=== PATIENT | male | born 1995 | race Caucasian/White ===

== ENCOUNTER 2018-12-11 10:25 | Outpatient (CLI) | payer BC ==
[2018-12-11] MEDS ORDERED: LISD30CA5 PO (10:46)
[2018-12-18] MEDS ORDERED: FENTANYL PF 250 MCG/5ML ONE (06:53)
[2018-12-18] MEDS ORDERED: MIDAZOLAM 1 MG/ML, 2ML ONE (06:53)
[2018-12-18] MEDS ORDERED: DEXAMETHASONE 4 MG/ML, 5ML ONE (07:56)
[2018-12-18] MEDS ORDERED: PROPOFOL 10 MG/ML, 20ML ONE (07:57)
[2018-12-18] MEDS ORDERED: ROCURONIUM 10MG/ML,5ML ONE ×2 (07:57→14:19)
[2018-12-18] MEDS ORDERED: CEFAZOLIN 1,000 MG ONE (07:57)
[2018-12-18] MEDS ORDERED: ONDANSETRON 2MG/ML, 2ML ONE (09:06)
[2018-12-18] MEDS ORDERED: NEOSTIGMINE 1 MG/ML, 10ML ONE (09:16)
[2018-12-18] MEDS ORDERED: GLYCOPYRROLATE 0.4 MG/2 ML, 2ML ONE (09:17)
== END 2018-12-11 23:59 | disposition home or self-care (01) ==
LOC: STAR 10:25
PROVIDERS: ATTEND Surgery
DX: Z02.9 Encounter for administrative examinations, unspecified (principal)

== ENCOUNTER 2018-12-18 06:13 | Day surgery (SDC) | payer BC ==
[~2018-12-18] VITALS: Ht 182.9 cm; Wt 78.1 kg
[~2018-12-18 06:13] MED LIST: LISD30CA5 PO
[2018-12-18] MEDS ORDERED: LACTATED RINGERS 1,000 ML IV SCH (06:34)
[2018-12-18 06:57] VITALS: BP 120/77
[2018-12-18] MEDS ORDERED: ACETAMINOPHEN 500 MG TABLET PO ONE (07:30)
[2018-12-18] MEDS ORDERED: OxyconTIN ER 10 MG TAB.ER PO ONE (07:30)
[2018-12-18] MEDS ORDERED: GABAPENTIN 300 MG CAPSULE PO ONE (07:30)
[2018-12-18] MEDS ORDERED: FAMOTIDINE 20 MG TABLET PO ONE (07:30)
[2018-12-18] MEDS ORDERED: BUPIVACAINE/PF-EPI 0.5% 1:200K ONE (07:33)
[2018-12-18] MEDS ORDERED: PROPOFOL 10 MG/ML, 20ML ONE (07:48)
[2018-12-18] MEDS ORDERED: ONDANSETRON 2MG/ML, 2ML ONE (07:48)
[2018-12-18] MEDS ORDERED: GLYCOPYRROLATE 0.2MG/1ML, 5ML ONE (07:48)
[2018-12-18] MEDS ORDERED: DEXAMETHASONE 4 MG/ML, 1ML ONE (07:48)
[2018-12-18] MEDS ORDERED: CEFAZOLIN 1,000 MG ONE (07:48)
[2018-12-18] MEDS ORDERED: ROCURONIUM 10 MG/ML,10ML ONE (07:48)
[2018-12-18] MEDS ORDERED: NEOSTIGMINE 1 MG/ML, 10ML ONE (07:48)
[2018-12-18] MEDS ORDERED: hydrALAzine 20 MG/ML, 1ML IV PRN (08:30)
[2018-12-18] MEDS ORDERED: OXYcodone 5 MG/5 ML ORAL.SOL UDC PO PRN (08:30)
[2018-12-18] MEDS ORDERED: LABETALOL 5MG/ML, 20ML IV PRN (08:30)
[2018-12-18] MEDS ORDERED: PROMETHAZINE 25 MG/ML, 1ML IV PRN (08:30)
[2018-12-18] MEDS ORDERED: HYDROmorphone 2 MG/ML, 1ML IVPush PRN (08:30)
[2018-12-18] MEDS ORDERED: ONDANSETRON 2MG/ML, 2ML IV PRN (08:30)
[2018-12-18] MEDS ORDERED: FENTANYL PF 100 MCG/2ML ONE (09:51)
[2018-12-18] MEDS ORDERED: OXYcodone 5 MG/5 ML ORAL.SOL UDC ONE (09:52)
[2018-12-18] MEDS: FENTANYL PF 100 MCG/2ML IV PRN ×4 (09:55→10:27)
== END 2018-12-18 15:10 | disposition home or self-care (01) ==
LOC: OUT 06:13
PROVIDERS: ATTEND Surgery
DX: K40.91 Unilateral inguinal hernia, without obstruction or gangrene, recurrent (principal); K42.9 Umbilical hernia without obstruction or gangrene; Z72.89 Other problems related to lifestyle; Z88.1 Allergy status to other antibiotic agents
CPT/HCPCS: 49585; 49651; C1781; J0690; J1100; J2250; J2405; J2704; J2710; J3010; J3490; J7120

== ENCOUNTER 2021-02-07 22:30 | Emergency (ER) | payer BC, MEDICAID ==
[~2021-02-07] VITALS: Ht 185.4 cm; Wt 85.6 kg
--- NOTE | 2021-02-07 22:50 | NUR ---
Patient presents to ER c/o cough and fever x 2days. Cough became worse yesterday. No other associated symptoms. Patient is in NAD. Respirations even and unlabored. Occasional cough noted.
[2021-02-07] MEDS ORDERED: IBUPROFEN 600 MG TABLET ONE (22:55)
[2021-02-07] MEDS ORDERED: ACETAMINOPHEN 500 MG TABLET ONE (22:55)
[2021-02-07] MEDS ORDERED: IBUPROFEN 600 MG TABLET PO ONE (23:00)
[2021-02-07] MEDS ORDERED: ACETAMINOPHEN 500 MG TABLET PO ONE (23:00)
--- NOTE | 2021-02-07 23:01 | NUR ---
Pt states pain is 4/10 if coughs it is a lot more. Pt also c/o ears being "stuffy." Call remote within reach.
--- NOTE | 2021-02-07 23:59 | NUR ---
PT STATES HAD STREP THROAT IN THE PAST AND THOUGHT IT COULD POSSIBLY BE STEP. VSS STABLE PT IN [facility] WITH BOTH RAILS UP. CALL REMOTE WITHIN REACH.
[2021-02-08 00:08] LABS: RAPID INFLUENZA A Negative (Negative); RAPID INFLUENZA B Negative (Negative)
[2021-02-08 00:11] VITALS: BP 110/72
--- NOTE | 2021-02-08 00:28 | NUR ---
Patient given discharge instructions and they have confirmed that they understand the instructions. Patient ambulatory with steady gait. No quesitons at time of discharge.
== END 2021-02-08 00:33 | disposition home or self-care (01) ==
LOC: ED 23:16
DX: B34.9 Viral infection, unspecified (principal); R06.02 Shortness of breath; Z20.822 Contact with and (suspected) exposure to COVID-19
CPT/HCPCS: 71045; 87400; 99284; U0003; U0005